=== PATIENT | female | born 1975 | race African-American/Black ===

== ENCOUNTER 2018-02-24 15:54 | Inpatient (IN) | payer OTHER ==
[~2018-02-24] VITALS: Ht 177.8 cm; Wt 111.3 kg
[2018-02-24 16:01] VITALS: Ht 177.8 cm; Wt 111.3 kg
[2018-02-24 16:57] LABS: PLATELET COUNT 353 x10^3mcL (130-400); RED CELL DISTRIBUTION WIDTH 13.5 % (11.5-14.5)
[2018-02-24 16:59] LABS: UA SPECIFIC GRAVITY 1.015 (1.005-1.035); microscopic required? YES; urine erythrocyte TRACE (NEGATIVE)
[2018-02-24 17:16] LABS: CARBON DIOXIDE 24.7 mmol/L (21-32); CHLORIDE SERUM 98 mmol/L (98-107); CREATININE SERUM 0.8 mg/dL (0.6-1.0); GFR1 > 60 mL/min; GLUCOSE SERUM 248 mg/dL (74-106); POTASSIUM SERUM 3.7 mmol/L (3.5-5.1); SODIUM SERUM 132 mmol/L (136-145)
[2018-02-24 17:17] LABS: BAND NEUTROPHIL 1 % (0-10); BASOPHIL 0 % (0-2); MONOCYTE 5 % (0-7); SEGMENTED NEUTROPHILS 85 % (37-75); rbc morphology (normal/abnorm) NORMAL (NORMAL)
[2018-02-24 17:21] LABS: ALBUMIN 3.4 g/dL (3.4-5.0); ALKALINE PHOSPHATASE 83 U/L (46-116); ALT/SGPT 19 U/L (14-59); AST/SGOT 10 U/L (15-37); BILIRUBIN TOTAL 0.42 mg/dL (0.20-1.00)
[2018-02-24 17:22] LABS: TOTAL PROTEIN, SERUM 8.6 g/dL (6.4-8.2)
[2018-02-24] MEDS ORDERED: LOTENSIN20 MG PO (18:38)
[2018-02-24] MEDS ORDERED: HYDROCHLOROTHIA25 MG PO (18:38)
[2018-02-24] MEDS ORDERED: BASAGLAR K100 UNIT/1 SQ (18:39)
[2018-02-24 19:31] LABS: MAGNESIUM 1.7 mg/dL (1.8-2.4); PHOSPHOROUS 2.8 mg/dL (2.5-4.9)
[2018-02-24 19:32] LABS: CHOLESTEROL/HDL RATIO 2.7
[2018-02-24 19:39] LABS: T3 TOTAL 1.1 ng/mL
[2018-02-24 19:41] LABS: FREE T4 0.86 ng/dL (0.76-1.46); FREE THYROXINE INDEX 2.2 ug/dL (1.4-4.5); T4(THYROXINE) 6.7 ug/dL (4.7-13.3)
[2018-02-24 19:51] VITALS: BP 133/87
[2018-02-24 21:37] LABS: AMPHETAMINE QUAL UR NONE DETECTED (See below)
[2018-02-25] VITALS (7 sets, daily range): BP systolic 138–166; BP diastolic 80–107
[2018-02-25 06:49] LABS: BASOPHIL % 0.2 % (0-2); PLATELET COUNT 340 x10^3mcL (130-400); RED CELL DISTRIBUTION WIDTH 12.5 % (11.5-14.5)
[2018-02-25 07:27] LABS: CALCIUM 8.8 mg/dL (8.5-10.1); CHLORIDE SERUM 101 mmol/L (98-107); CREATININE SERUM 0.7 mg/dL (0.6-1.0); GFR1 > 60 mL/min; GLUCOSE SERUM 186 mg/dL (74-106); MAGNESIUM 1.9 mg/dL (1.8-2.4); PHOSPHOROUS 3.3 mg/dL (2.5-4.9); POTASSIUM SERUM 3.8 mmol/L (3.5-5.1); SODIUM SERUM 134 mmol/L (136-145)
[2018-02-26 05:39] VITALS: BP 138/58
[2018-02-26 06:44] LABS: BASOPHIL % 0.2 % (0-2); PLATELET COUNT 306 x10^3mcL (130-400); RED CELL DISTRIBUTION WIDTH 13.3 % (11.5-14.5)
[2018-02-26 07:01] LABS: CALCIUM 8.6 mg/dL (8.5-10.1); CARBON DIOXIDE 28.6 mmol/L (21-32); CHLORIDE SERUM 101 mmol/L (98-107); CREATININE SERUM 0.9 mg/dL (0.6-1.0); GFR1 > 60 mL/min; GLUCOSE SERUM 163 mg/dL (74-106); MAGNESIUM 1.9 mg/dL (1.8-2.4); PHOSPHOROUS 3.8 mg/dL (2.5-4.9); SODIUM SERUM 135 mmol/L (136-145)
[2018-02-26 09:16] VITALS: BP 119/63
[2018-02-26] MEDS ORDERED: LEVAQUIN750 MG PO (15:34)
[2018-02-26 15:54] VITALS: BP 119/63
== END 2018-02-26 18:48 | disposition home or self-care (01) | DRG 720 ==
LOC: ED 15:54 → MU 18:29 → DU 18:29 → MU 19:44
PROVIDERS: Emergency Medicine; Family Medicine
DX: A41.9 Sepsis, unspecified organism (principal); E11.65 Type 2 diabetes mellitus with hyperglycemia; N39.0 Urinary tract infection, site not specified; K59.00 Constipation, unspecified; E87.1 Hypo-osmolality and hyponatremia; E83.42 Hypomagnesemia; E66.9 Obesity, unspecified; Z68.35 Body mass index [BMI] 35.0-35.9, adult; Z71.3 Dietary counseling and surveillance
CPT/HCPCS: 82962; 83880; 84439; 94150; J0696; J1200; J1815; J2270; J2405; J3490; J7030; J7620; Q0162; Q0163